=== PATIENT | male | born 1960 | race African-American/Black ===

== ENCOUNTER 2018-08-21 11:38 | Emergency (ER) | payer SELFPAY ==
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
== END 2018-08-21 13:37 | disposition home or self-care (01) ==
LOC: ERS 11:38
DX: S62.511A Displaced fracture of proximal phalanx of right thumb, initial encounter for closed fracture (principal); S62.521A Displaced fracture of distal phalanx of right thumb, initial encounter for closed fracture; Z86.74 Personal history of sudden cardiac arrest; V99.XXXA Unspecified transport accident, initial encounter
CPT/HCPCS: 29125

== ENCOUNTER 2019-06-19 16:54 | Emergency (ER) | payer SELFPAY ==
[2019-06-19] MEDS ORDERED: Ketorolac Tromethamine 30 MG/ML VIAL ONE (17:13)
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
--- NOTE | 2019-06-19 18:47 | RAD ---
LEFT KNEE RADIOGRAPHS FOUR VIEWS: 06/19/19 PROVIDED CLINICAL HISTORY: Left knee pain status post injury. FINDINGS: No evidence for fracture or other acute osseous abnormality. If there is persistent clinical concern, conservative management and follow-up imaging are advised. IMPRESSION: As above. POS: [facility]
== END 2019-06-19 19:00 | disposition home or self-care (01) ==
LOC: ERS 16:54
DX: M25.572 Pain in left ankle and joints of left foot (principal); M25.562 Pain in left knee; M10.9 Gout, unspecified; Z86.74 Personal history of sudden cardiac arrest; V23.4XXA Motorcycle driver injured in collision with car, pick-up truck or van in traffic accident, initial encounter; Y93.55 Activity, bike riding
CPT/HCPCS: 96372; J1885

== ENCOUNTER 2024-04-22 19:04 | Inpatient (IN) | payer SELFPAY ==
[~2024-04-22 19:04] MED LIST: Iopamidol-370 76% 500 ML MDV (1 ML CHARGE) ONE
[2024-04-22 20:38] LABS: #Basophils 0.04 10x3/uL (0.0-0.2); %Basophils 0.7 % (0.0-1.0); %Eosinophils 1.4 % (0.0-10.0); %Lymphocytes 28.8 % (21.0-51.0); %Neutrophils 61.9 % (42.0-75.0); Hematocrit 41.8 % (42.0-52.0); Hemoglobin 13.9 g/dL (14.0-18.0); Mean Corpuscular HGB CONC 33.3 g/dL (32.0-36.0); Mean Corpuscular Hemoglobin 27.8 pg (27.0-31.0); Mean Corpuscular Volume 83.6 fL (78.0-98.0); Platelet Count 217 10x3/uL (130-400); RBC Distribution Width 13.8 % (11.5-14.5)
[2024-04-22 20:57] LABS: INR-International Normal Ratio 1.1; Prothrombin Time 13.9 sec (12.0-14.7)
[2024-04-22 20:58] LABS: ALT (SGPT) 31 U/L (8-55); AST (SGOT) 31 U/L (5-34); Albumin 4.5 g/dL (3.4-4.8); Alkaline Phosphatase 72 U/L (40-110); Anion Gap 16 mmol/L (10-20); BUN (Urea Nitrogen) 15 mg/dL (8.4-25.7); Bilirubin, Total 0.7 mg/dL (0.2-1.2); Calc. Creatinine Clearance 0 mL/min (70-130); Calcium 9.8 mg/dL (7.8-10.44); Carbon Dioxide 21 mmol/L (23-31); Chloride 102 mmol/L (98-107); Estimated GFR 66; Globulin 4.4 g/dL (2.4-3.5); Glucose 76 mg/dL (80-115); PTT 31.4 sec (22.9-36.1); Potassium 4.3 mmol/L (3.5-5.1); Protein, Total 8.9 g/dL (5.8-8.1); Sodium 135 mmol/L (136-145)
[2024-04-22 21:03] LABS: Troponin I Less than 0.010 ng/mL (< 0.028)
[2024-04-22] MEDS ORDERED: Acetaminophen 650 MG Suppository PR PRN (23:11)
[2024-04-22] MEDS ORDERED: Ondansetron PF 4 MG/2 ML Vial IVP PRN (23:11)
[2024-04-22] MEDS ORDERED: Ondansetron ODT 4 MG TAB PO PRN (23:11)
[2024-04-23] MEDS: Acetaminophen 325 MG TAB PO SCH (02:38)
[2024-04-23 06:15] LABS: Hemoglobin A1c 5.6 % (4.0-6.0)
[2024-04-23 06:17] LABS: #Basophils 0.05 10x3/uL (0.0-0.2); %Basophils 0.9 % (0.0-1.0); %Eosinophils 2.1 % (0.0-10.0); %Lymphocytes 30.9 % (21.0-51.0); %Monocytes 11.5 % (0.0-10.0); %Neutrophils 54.4 % (42.0-75.0); Hematocrit 41.1 % (42.0-52.0); Hemoglobin 14.1 g/dL (14.0-18.0); Mean Corpuscular HGB CONC 34.3 g/dL (32.0-36.0); Mean Corpuscular Volume 81.5 fL (78.0-98.0); Mean Platelet Volume 10.3 fL (7.4-10.4); Platelet Count 193 10x3/uL (130-400); RBC Distribution Width 13.6 % (11.5-14.5); Red Blood Cell (RBC) Count 5.04 mill/uL (4.70-6.10)
[2024-04-23 07:24] LABS: ALT (SGPT) 27 U/L (8-55); AST (SGOT) 27 U/L (5-34); Albumin 4.1 g/dL (3.4-4.8); Alkaline Phosphatase 67 U/L (40-110); Anion Gap 14 mmol/L (10-20); BUN (Urea Nitrogen) 15 mg/dL (8.4-25.7); Bilirubin, Total 0.7 mg/dL (0.2-1.2); Calc. Creatinine Clearance 103 mL/min (70-130); Calcium 9.6 mg/dL (7.8-10.44); Carbon Dioxide 23 mmol/L (23-31); Cardiac Risk 3.3 (Less than 4.5); Chloride 103 mmol/L (98-107); Cholesterol 173 mg/dl (< 200 Desired); Estimated GFR 82; Globulin 4.1 g/dL (2.4-3.5); Glucose 84 mg/dL (80-115); HDL Cholesterol 53 mg/dL (>60 Neg Risk); LDL Cholesterol, Calculated 98 mg/dL; Potassium 4.6 mmol/L (3.5-5.1); Protein, Total 8.2 g/dL (5.8-8.1); Sodium 135 mmol/L (136-145); Triglycerides 109 mg/dL (Less than 150)
[2024-04-23] MEDS ORDERED: Famotidine 20 MG TAB ONE (10:05)
[2024-04-23] MEDS: Famotidine/PF 20 mg/2ml Vial SLOW IVP SCH (10:07)
[2024-04-23] MEDS ORDERED: Acetaminophen 650 MG/20.3 ML UDCUP ONE (12:15)
[2024-04-23] MEDS: Famotidine 20 MG TAB PO SCH (12:18)
[2024-04-23 16:05] VITALS: BMI 30.9
[2024-04-23] MEDS: FLU (Fluarix Triv) TS24-25(6MOS UP)/PF 45 MCG/0.5 ML Syringe IM ONE (18:07)
[2024-04-23] MEDS: Atorvastatin Calcium 40 MG TAB PO SCH (20:34)
[2024-04-24 04:26] LABS: #Basophils 0.03 10x3/uL (0.0-0.2); %Basophils 0.6 % (0.0-1.0); %Eosinophils 3.9 % (0.0-10.0); %Lymphocytes 34.3 % (21.0-51.0); %Monocytes 11.6 % (0.0-10.0); %Neutrophils 49.4 % (42.0-75.0); Hematocrit 41.4 % (42.0-52.0); Mean Corpuscular HGB CONC 33.8 g/dL (32.0-36.0); Mean Corpuscular Hemoglobin 27.9 pg (27.0-31.0); Mean Corpuscular Volume 82.5 fL (78.0-98.0); Platelet Count 223 10x3/uL (130-400); RBC Distribution Width 13.8 % (11.5-14.5); Red Blood Cell (RBC) Count 5.02 mill/uL (4.70-6.10)
[2024-04-24 04:33] LABS: Anion Gap 13 mmol/L (10-20); BUN (Urea Nitrogen) 19 mg/dL (8.4-25.7); Calc. Creatinine Clearance 91 mL/min (70-130); Calcium 9.8 mg/dL (7.8-10.44); Carbon Dioxide 25 mmol/L (23-31); Chloride 101 mmol/L (98-107); Estimated GFR 68; Glucose 84 mg/dL (80-115); Potassium 3.9 mmol/L (3.5-5.1); Sodium 135 mmol/L (136-145)
[2024-04-24] MEDS: Allopurinol 300 MG TAB PO SCH (08:08)
[2024-04-25 04:33] LABS: #Basophils 0.04 10x3/uL (0.0-0.2); %Basophils 0.7 % (0.0-1.0); %Lymphocytes 34.1 % (21.0-51.0); %Monocytes 8.6 % (0.0-10.0); %Neutrophils 52.4 % (42.0-75.0); Hematocrit 41.7 % (42.0-52.0); Mean Corpuscular HGB CONC 33.6 g/dL (32.0-36.0); Mean Corpuscular Hemoglobin 27.3 pg (27.0-31.0); Mean Corpuscular Volume 81.4 fL (78.0-98.0); Mean Platelet Volume 9.3 fL (7.4-10.4); Platelet Count 233 10x3/uL (130-400); RBC Distribution Width 13.6 % (11.5-14.5); Red Blood Cell (RBC) Count 5.12 mill/uL (4.70-6.10)
[2024-04-25 04:50] LABS: Anion Gap 15 mmol/L (10-20); BUN (Urea Nitrogen) 20 mg/dL (8.4-25.7); Calc. Creatinine Clearance 98 mL/min (70-130); Calcium 9.7 mg/dL (7.8-10.44); Carbon Dioxide 23 mmol/L (23-31); Chloride 100 mmol/L (98-107); Estimated GFR 74; Glucose 84 mg/dL (80-115); Potassium 4.1 mmol/L (3.5-5.1); Sodium 134 mmol/L (136-145)
[2024-04-25 08:14] VITALS: BP 119/79; TEMP 97.6
== END 2024-04-25 11:04 | disposition home or self-care (01) | DRG 56 ==
LOC: ERS 19:04 → ERHOLD 21:38 → 2SE 04-23 16:14 → OBSVTOIN 04-24 08:35
PROVIDERS: ADMIT Student in an Organized Health Care Education/Training Program; ATTEND Family Medicine
DX: G23.8 Other specified degenerative diseases of basal ganglia (principal); I61.8 Other nontraumatic intracerebral hemorrhage; I63.9 Cerebral infarction, unspecified; I10 Essential (primary) hypertension; E78.5 Hyperlipidemia, unspecified; M10.9 Gout, unspecified; I25.10 Atherosclerotic heart disease of native coronary artery without angina pectoris; Z86.74 Personal history of sudden cardiac arrest; I25.2 Old myocardial infarction; R47.1 Dysarthria and anarthria; E11.9 Type 2 diabetes mellitus without complications; Z95.5 Presence of coronary angioplasty implant and graft; Z79.899 Other long term (current) drug therapy; R29.701 NIHSS score 1
CPT/HCPCS: 36415; 36416; 70450; 70496; 70498; 70553; 71045; 76376; 80048; 80053; 80061; 83036; 84484; 85025; 85610; 85730; 86850; 86870; 86900; 86901; 86905; 86922; 93005; 93306; 94760; Q9967